=== PATIENT | male | born 1990 | race Caucasian/White ===

== ENCOUNTER 2020-08-13 21:28 | Emergency (ER) | payer OTHER ==
[2020-08-13 22:25] LABS: BILIRUBIN NEGATIVE (NEGATIVE); BLOOD TRACE-LYSED Ery/uL (NEGATIVE); CLARITY CLEAR (CLEAR); COLOR YELLOW (YELLOW); GLUCOSE (U) NORMAL (NORMAL); LEUKOCYTES TRACE Leu/uL (NEGATIVE); NITRITE NEGATIVE (NEGATIVE); PROTEIN NEGATIVE (NEGATIVE); UROBILINOGEN 0.2 mg/dL (0.2-1.0); pH 6.5 (5.0-9.0)
[2020-08-13 22:32] LABS: ECSTASY (MDMA) NEGATIVE (NEGATIVE); MARIJUANA (THC) POSITIVE (NEGATIVE); METHADONE NEGATIVE (NEGATIVE); OPIATES NEGATIVE (NEGATIVE)
[2020-08-13 22:33] LABS: AMPHETAMINES POSITIVE (NEGATIVE); BARBITURATES NEGATIVE (NEGATIVE); OXYCODONE NEGATIVE (NEGATIVE)
[2020-08-13 22:35] LABS: BASOPHIL 0.5 % (0-2); EOSINOPHIL 2.3 % (0-5); HCT 48.7 % (42.0-52.0); HGB 16.4 g/dl (13.2-18.0); LYMPHOCYTE 29.9 % (15-48); MCH 30.3 pg (25.0-31.0); MCHC 33.7 g/dL (32.0-36.0); MCV 89.9 fL (78.0-100.0); MONOCYTE 6.3 % (0-12); MPV 10.3 fL (6.0-9.5); NEUTROPHIL 60.7 % (41-80); NRBC 0; PLT 261 K/uL (150-400); RBC 5.42 M/uL (4.70-6.00); RDW 12.2 % (11.5-14.0); WBC 12.2 K/uL (4.0-10.5)
[2020-08-13 22:49] LABS: ALBUMIN 4.1 g/dL (3.4-5.0); BILIRUBIN - TOTAL 0.4 mg/dL (0.2-1.0); BUN/CREAT RATIO (CALC) 10.4 RATIO; CREATININE 0.77 mg/dL (0.67-1.17); GLOBULIN (CALCULATION) 3.4 g/dL; POTASSIUM 3.6 mmol/L (3.5-5.1); TOTAL PROTEIN 7.5 g/dL (6.4-8.2)
== END 2020-08-13 23:25 | disposition home or self-care (01) ==
LOC: FER 21:28
PROVIDERS: Emergency Medicine Emergency Medical Services
DX: R05 Cough (principal); F19.10 Other psychoactive substance abuse, uncomplicated; R06.02 Shortness of breath; J34.89 Other specified disorders of nose and nasal sinuses; F17.290 Nicotine dependence, other tobacco product, uncomplicated; Z20.822 Contact with and (suspected) exposure to COVID-19
CPT/HCPCS: 36415; 71046; 80053; 80305; 81001; 84484; 85025; 93005; 96372; J1040; J1885; U0002

== ENCOUNTER 2020-08-17 15:42 | Emergency (ER) | payer OTHER | END 2020-08-17 17:26 | disposition home or self-care (01) | LOC: FER 15:42 | DX: F15.10 Other stimulant abuse, uncomplicated (principal) | CPT/HCPCS: 99283 ==

== ENCOUNTER 2021-02-20 14:53 | Emergency (ER) | payer OTHER ==
[2021-02-20 15:53] LABS: BASOPHIL 0.4 % (0-2); EOSINOPHIL 0.3 % (0-5); HCT 43.6 % (42.0-52.0); LYMPHOCYTE 11.9 % (15-48); MCH 30.5 pg (25.0-31.0); MCHC 34.4 g/dL (32.0-36.0); MCV 88.6 fL (78.0-100.0); MONOCYTE 10.6 % (0-12); MPV 10.3 fL (6.0-9.5); NEUTROPHIL 76.4 % (41-80); NRBC 0; PLT 167 K/uL (150-400); RBC 4.92 M/uL (4.70-6.00); RDW 12.2 % (11.5-14.0); WBC 13.1 K/uL (4.0-10.5)
[2021-02-20 16:28] LABS: ALBUMIN 3.4 g/dL (3.4-5.0); BILIRUBIN - TOTAL 0.7 mg/dL (0.2-1.0); BUN/CREAT RATIO (CALC) 12.2 RATIO; CREATININE 0.74 mg/dL (0.67-1.17); GLOBULIN (CALCULATION) 3.9 g/dL; POTASSIUM 3.8 mmol/L (3.5-5.1); TOTAL PROTEIN 7.3 g/dL (6.4-8.2)
[2021-02-20 16:34] LABS: MONOSPOT (MONONUCLEOSIS) NEGATIVE (NEGATIVE)
[2021-02-20 18:14] LABS: AMPHETAMINES POSITIVE (NEGATIVE); BARBITURATES NEGATIVE (NEGATIVE); ECSTASY (MDMA) NEGATIVE (NEGATIVE); MARIJUANA (THC) POSITIVE (NEGATIVE); METHADONE NEGATIVE (NEGATIVE); OPIATES NEGATIVE (NEGATIVE); OXYCODONE NEGATIVE (NEGATIVE)
== END 2021-02-20 19:30 | disposition left against medical advice (07) ==
LOC: FER 14:53
PROVIDERS: Emergency Medicine; Nurse Practitioner Family
DX: R06.02 Shortness of breath (principal); R07.0 Pain in throat; R05 Cough; F19.90 Other psychoactive substance use, unspecified, uncomplicated; J35.3 Hypertrophy of tonsils with hypertrophy of adenoids; F17.210 Nicotine dependence, cigarettes, uncomplicated
CPT/HCPCS: 36415; 70491; 71045; 71275; 80053; 80305; 84484; 85025; 85379; 86308; 93005; J1885; J7030; Q9967

== ENCOUNTER 2022-02-20 09:24 | Emergency (ER) | payer OTHER ==
[2022-02-20 11:08] LABS: BASOPHIL 0.4 % (0-2); EOSINOPHIL 1.4 % (0-5); HCT 48.1 % (42.0-52.0); HGB 16.3 g/dl (13.2-18.0); LYMPHOCYTE 24.3 % (15-48); MCH 31.5 pg (25.0-31.0); MCHC 33.9 g/dL (32.0-36.0); MONOCYTE 7.4 % (0-12); MPV 10.9 fL (6.0-9.5); NEUTROPHIL 66.1 % (41-80); NRBC 0; PLT 207 K/uL (150-400); RBC 5.17 M/uL (4.70-6.00); RDW 11.9 % (11.5-14.0); WBC 10.3 K/uL (4.0-10.5)
[2022-02-20 11:09] LABS: MARIJUANA (THC) POSITIVE (NEGATIVE)
[2022-02-20 11:10] LABS: AMPHETAMINES POSITIVE (NEGATIVE); BARBITURATES NEGATIVE (NEGATIVE); ECSTASY (MDMA) NEGATIVE (NEGATIVE); METHADONE NEGATIVE (NEGATIVE); OPIATES NEGATIVE (NEGATIVE); OXYCODONE NEGATIVE (NEGATIVE)
[2022-02-20 11:24] LABS: BUN/CREAT RATIO (CALC) 7.4 RATIO; CREATININE 0.68 mg/dL (0.67-1.17); POTASSIUM 3.8 mmol/L (3.5-5.1)
== END 2022-02-20 11:52 | disposition home or self-care (01) ==
LOC: FER 09:24
PROVIDERS: Internal Medicine
DX: M54.2 Cervicalgia (principal); F15.10 Other stimulant abuse, uncomplicated; F17.210 Nicotine dependence, cigarettes, uncomplicated; Z28.310 Unvaccinated for COVID-19
CPT/HCPCS: 36415; 70450; 72125; 80048; 80305; 84145; 85025

== ENCOUNTER 2022-02-21 00:50 | Emergency (ER) | payer OTHER | END 2022-02-21 01:15 | disposition home or self-care (01) | LOC: FER 00:50 | DX: F15.90 Other stimulant use, unspecified, uncomplicated (principal); K13.79 Other lesions of oral mucosa; F17.200 Nicotine dependence, unspecified, uncomplicated; Z28.310 Unvaccinated for COVID-19 | CPT/HCPCS: 99283 ==